=== PATIENT | male | born 1975 | race Native Hawaiian/Other Pacific Islander ===

== ENCOUNTER 2019-05-22 02:51 | Emergency (ER) | payer BC ==
[~2019-05-22] VITALS: Ht 182.9 cm; Wt 99.8 kg
== END 2019-05-22 04:52 | disposition home or self-care (01) ==
LOC: ER 02:51
DX: R51 Headache (principal); Z87.891 Personal history of nicotine dependence; Z88.1 Allergy status to other antibiotic agents
CPT/HCPCS: 70450; 96372-59; 96374; 96375; 99284-25; J0780; J1200; J1885; J3010

== ENCOUNTER 2020-09-10 09:52 | Emergency (ER) | payer OTHER, BC ==
[~2020-09-10] VITALS: Ht 182.9 cm; Wt 99.8 kg
[2020-09-10] MEDS ORDERED: LIDO700A20 TOP (12:39)
[2020-09-10] MEDS ORDERED: ACETAMINOPHEN500 MG PO (12:39)
[2020-09-10] MEDS ORDERED: Valium5 MG PO (12:39)
[2020-09-10] MEDS ORDERED: IBUP600 PO (12:39)
[2020-09-11] MEDS ORDERED: CYCL10 PO (12:26)
[2020-09-11] MEDS ORDERED: Norco 5-325 Ta1 EACH PO (12:26)
== END 2020-09-10 12:49 | disposition home or self-care (01) ==
LOC: ER 09:52
DX: G89.29 Other chronic pain (principal); M54.5 Low back pain; R25.2 Cramp and spasm; Z88.1 Allergy status to other antibiotic agents; Z87.891 Personal history of nicotine dependence
CPT/HCPCS: 96372; 99283-25; A9270; A9270-GY; J1170; J2270

== ENCOUNTER 2020-09-11 09:06 | Emergency (ER) | payer BC ==
[~2020-09-11] VITALS: Ht 182.9 cm; Wt 99.8 kg
[~2020-09-11 09:06] MED LIST: ACETAMINOPHEN500 MG PO; IBUP600 PO; LIDO700A20 TOP; Valium5 MG PO
[2020-09-11] MEDS ORDERED: Norco 5-325 Ta1 EACH PO (12:26)
[2020-09-11] MEDS ORDERED: CYCL10 PO (12:26)
== END 2020-09-11 12:47 | disposition home or self-care (01) ==
LOC: ER 09:06
DX: M54.16 Radiculopathy, lumbar region (principal); Z87.828 Personal history of other (healed) physical injury and trauma; Z88.1 Allergy status to other antibiotic agents; Z87.891 Personal history of nicotine dependence
CPT/HCPCS: 51798; 96374; 96375; 99282-25; J1885; J2270

== ENCOUNTER 2022-10-14 09:22 | Day surgery (SDC) | payer BC ==
[~2022-10-14] VITALS: Ht 182.9 cm; Wt 95.0 kg
[~2022-10-14 09:22] MED LIST changes: +CYCL10 PO; +ESCI10 PO; +LOSA25 PO; +Norco 5-325 Ta1 EACH PO
--- NOTE | 2022-10-14 11:04 | NUR ---
10/14/22 1104 Heidi Traore A PILLOW UNDER HEAD, ARMS SECURED ON PADDED ARM BOARDS, RIGHT KNEE POST
== END 2022-10-14 12:35 | disposition home or self-care (01) ==
LOC: ORSCSDS 09:22
PROVIDERS: Orthopaedic Surgery
PROC: 0SBC4ZZ Excision of Right Knee Joint, Percutaneous Endoscopic Approach (ICD-10-PCS; principal; 2022-10-14 10:15)
DX: S83.281A Other tear of lateral meniscus, current injury, right knee, initial encounter (principal); S83.241A Other tear of medial meniscus, current injury, right knee, initial encounter; M22.41 Chondromalacia patellae, right knee; M67.51 Plica syndrome, right knee; I10 Essential (primary) hypertension; Z79.899 Other long term (current) drug therapy
CPT/HCPCS: J0171; J0690; J1100; J1885; J2405; J2704; J3010